=== PATIENT | male | born 1965 | race Two or more races ===

== ENCOUNTER → 2024-03-09 | Outpatient (CLI) | payer BC, SELFPAY ==
[2024-03-09 17:08] LABS: Anion Gap 10 (7-16); BUN/Creatinine Ratio 13 Ratio (12-20); Blood Urea Nitrogen 27 mg/dL (9-23); Calcium 9.6 mg/dL (8.3-10.6); Carbon Dioxide 28.1 mMol/L (20.0-31.0); Chloride 101 mMol/L (98-107); Creatinine (Component) 2.1 mg/dL (0.6-1.3); Glucose 113 mg/dL (74-106); Osmolality,Calculated 283 (275-295); Potassium 3.7 mMol/L (3.4-5.1); Sodium 139 mMol/L (136-145); eGFR 35 See Note
== END | disposition home or self-care (01) ==
PROVIDERS: PCP Family Medicine; Referring Provider Internal Medicine Cardiovascular Disease; Visit Provider Internal Medicine Cardiovascular Disease
DX: N18.9 Chronic kidney disease, unspecified (principal); I50.42 Chronic combined systolic (congestive) and diastolic (congestive) heart failure
CPT/HCPCS: 36415; 80048; 83735

== ENCOUNTER 2024-06-16 06:48 | Day surgery (SDC) | payer BC, SELFPAY ==
--- NOTE | 2024-06-15 07:00 | EKG_ITS ---
[facility] Test Date: 2024-06-15 Pat Name: KIYA POTTS Department: Room: - Gender: Male Billing Manager: RTSJC : 1965 Requested By: Chip Link Order Number: [id number] Reading MD: Chip Link Measurements Intervals [place] Rate: 66 P: 48 LA: 250 QRS: -27 QRSD: 140 T: 145 QT: 453 QTc: 475 Interpretive Statements SINUS RHYTHM WITH FIRST DEGREE AV BLOCK LEFT BUNDLE BRANCH BLOCK [120+ ms QRS DURATION, 80+ ms Q/S IN V1/V2, 85+ ms R IN I/aVL/V5/V6] Compared to ECG 04/01/2023 10:25:58 First degree AV block now present /store/[id number]
[2024-06-15 14:39] LABS: Basophils % (Auto) 0 % (0-2.5); Eosinophils # (Auto) 0.3 Thou/mm3 (0.0-0.5); Eosinophils % (Auto) 3 % (0-10); Hematocrit 41.2 % (41.0-53.0); Hemoglobin 14.4 g/dL (13.5-16.0); Immature Granulocytes % (Auto) 0 % (0-0); Immature Granulocytes Auto 0.03 Thou/mm3 (0.00-0.00); Lymphocytes % (Auto) 22 % (10-50); Mean Corpuscular Hemoglobin 29.8 pg (25.0-35.0); Mean Corpuscular Volume 85 fL (80-100); Monocytes # (Auto) 0.8 Thou/mm3 (0.0-0.8); Monocytes % (Auto) 9 % (0-12); Neutrophils # (Auto) 5.9 Thou/mm3 (1.8-7.7); Neutrophils % (Auto) 66 % (37-80); Nucleated Red Blood Cell % 0 /100 WBC (0); Platelet Count 309 Thou/mm3 (140-440); Red Blood Count 4.83 Miln/mm3 (4.50-5.90); White Blood Count 9.1 Thou/mm3 (3.8-10.6)
[2024-06-15 14:45] LABS: Partial Thromboplastin Time 26.9 Seconds (22.0-36.0); Prothrombin Time 10.5 Seconds (9.0-12.2)
[2024-06-15 14:46] LABS: Anion Gap 7 (7-16); BUN/Creatinine Ratio 16 Ratio (12-20); Blood Urea Nitrogen 27 mg/dL (9-23); Calcium 9.8 mg/dL (8.3-10.6); Carbon Dioxide 27.8 mMol/L (20.0-31.0); Chloride 106 mMol/L (98-107); Creatinine (Component) 1.7 mg/dL (0.6-1.3); Glucose 104 mg/dL (74-106); Osmolality,Calculated 286 (275-295); Potassium 4.5 mMol/L (3.4-5.1); Sodium 141 mMol/L (136-145); eGFR 46 See Note
[2024-06-16] VITALS (13 sets, daily range): BP systolic 135–197; BP diastolic 64–118; PULSE 60–77; RESP 11–18; TEMP 36.1–37.1; O2SAT 92–99
--- NOTE | 2024-06-16 10:00 | ESOP_ITS ---
Cardiac Cath Procedure Procedure Narrative Date of procedure: MUSIC INTERN: Chip Link MD PROCEDURE PERFORMED: 1. Left heart and right heart cardiac catheterization including right, left coronary angiograms and left ventriculogram - CPT 67029 2. Ultrasound-guided access of the right radial artery and right femoral vein - CPT 59171 3. Conscious sedation for 30 minutes - CPT 21058 HISTORY AND INDICATIONS: Patient did complain of chest pressure when he was in the palpitations and even after he converted to normal sinus rhythm and patient has new onset heart failure hence patient is a candidate for left and right coronary angiograms hence schedule for cardiac catheterization today. Discussed with patient risks, benefits and alternatives of performing left with coronary angiogram including the risks of bleeding, heart rate, stroke and with the procedure. Patient understands the risks and is willing to undergo the procedure. Consent provided for the same. H&P updated and consent was signed prior to the procedure DESCRIPTION OF PROCEDURE: The patient was brought to the cardiac catheterization lab and all asceptic precautions were followed. Patient was given 1 Mg of Versed and 50 mcg of fentanyl for moderate conscious sedation. 2 mL of lidocaine was given in the right wrist. The right radial artery was accessed via the ultrasound guidance as well as micropuncture technique. A 6 Tristanian glide sheath was introduced. Patient already had right antecubital vein access placed. Right antecubital vein access was cleaned appropriately and all aseptic precautions was followed and exchanged into a micropuncture catheter with the help of a micropuncture wire and then introduced and a 7 Tristanian sheath into the antecubital vein access with the help of a J-wire. A 7 Tristanian capitan grande catheter was used to direct catheter into the right atrium with inflated balloon. A 10 ml of lidocaine was then injected in the right femoral area and right femoral vein vein was accessed with ultrasound guidance and micropuncture technique. A 7 mongolian femoral sheath was used. A 7 Tristanian [place] catheter was used with a Valley wire to direct into the right atrium with inflated balloon. Serial measurements of right atrium, right ventricle, pulmonary artery and pulmonary capillary wedge were taken severely with normal respiration as well as at end expiration as noted below. We then used a 6 Tristanian TIG 4 catheter to perform the left and right coronary angiogram as well as a left ventriculogram which showed the following findings. [facility] findings: 1. Left ventricular ejection fraction was severely 20-25% without any regional wall motion abnormalities. LVEDP was normal at 37 mmHg. There was no significant transvalvular aortic gradient. 2. Right dominant circulation left main artery is a large-caliber vessel without any significant stenosis. 3. LAD is a large sized artery with a medium size diagonal and does not show any significant disease. mild 20% disease of ostial diagonal 1 4. LCx is a large sized artery with medium OM1 and small OM2 without any signi ficant disease. 5. RCA is a large artery with nedium RPDA and RPL without any significant disease. RHC findings: Mean right atrial pressure was 12 mmHg. Right atrial pressure was 53/16 mmHg. Pulmonary artery pressure was 60/32 mmHg with a mean of 44 mmHg. Mean pulmonary capillary wedge pressure was 30 mmHg. TPG was 14 mmHg Pulmonary artery PA saturation was 63.5%.? Arterial saturation was 95% on room air. Cardiac output was 4.0 L/min and cardiac index was normal at 1.9 L/min/m? A radial band was used to achieve the hemostasis of the right radial artery access and manual hemostasis for the right antecubital vein. Patient will be monitored in the cardiac aquatic instructor for the next 2 to 3 hours and will be sent to the telemetry floor. Patient recommended to follow-up with me in the office wit [facility] 7 days after discharge. Complications: None Specimens: None Blood loss: Estimated 5 ml Summary/findings: 1. Non ischemic cardiomyopathy: LHC showed normal coronaries without any angiographically significant obstruction and few luminal irregularities. 2. LVEF was severely low at 25-30%. 3. LVEDP severely elevated at 32 mm hg. No significant transvalvular aortic gradient. 4. Moderately elevated right heart pressures with mean RA of 14 mm hg, mean PA of 44 mmhg and mean PCWP at 32 mm hg which is secondary to the severe left heart dysfunction and possible CORNELIA component. Recommendations: 1. Recommend aggressive diuresis for HFrEF given severely elevated LVEDP at 32 mm hg. Lasix 40 mg IV BID for now. 2. 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
--- NOTE | 2024-06-16 10:40 | PC.NURSE ---
1040 patient s/p LHC and RHC by Dr. Link, TR band to right wrist, no bleeding or hematoma noted. gauze and coban to right brachial access site, no bleeding or hematoma noted. Report given to Hang MULLIGAN, patient to recover for 3 hrs.
--- NOTE | 2024-06-16 12:30 | PC.NURSE ---
TR band removed at this time. Surgical site asymptomatic, no active bleeding, no hematoma noted on right upper extremity or around the surgical site. Capillary refill < 3 seconds. No noted changes in color or temperature on right upper extremity. Patient denies general and localized pain, no loss in sensation, no tingling or numbness felt to right upper extremity. Tagaderm and Coban wrap applied. Will continue to monitor
--- NOTE | 2024-06-16 12:45 | PC.NURSE ---
Surgical site remains asymptomatic, no active bleeding, no hematoma noted on right upper extremity or around the surgical site. Capillary refill < 3 seconds. No noted changes in color or temperature on right upper extremity. Patient denies generalized and localized pain, no loss in sensation, no tingling or numbness felt to right upper extremity. Tagaderm and Coban wrap in place, clean, and dry. Will continue to monitor
--- NOTE | 2024-06-17 10:30 | PC.NURSE ---
Patient was brought into Cathlab and placed on the table in supine position, procedure was started and midway through the procedure the Hemodynamic Cable stopped working even after multiple attempts in trying to zero and get the cable to work so that we could continue with the procedure. DR Link was aware of the cable issue and deemed it not safe. I asked DR to explain the situation to patient since i am a certified Rn Postpartum, patient aware and understands the situation.
== END 2024-06-16 13:30 | disposition home or self-care (01) ==
PROVIDERS: Referring Provider Internal Medicine Cardiovascular Disease; Visit Provider Internal Medicine Cardiovascular Disease
PROC: (CPT 93460; principal; 2024-06-16 09:00)
DX: I25.118 Atherosclerotic heart disease of native coronary artery with other forms of angina pectoris (principal); I50.42 Chronic combined systolic (congestive) and diastolic (congestive) heart failure; N18.30 Chronic kidney disease, stage 3 unspecified; E66.9 Obesity, unspecified; G47.33 Obstructive sleep apnea (adult) (pediatric); Z01.810 Encounter for preprocedural cardiovascular examination; I13.0 Hypertensive heart and chronic kidney disease with heart failure and stage 1 through stage 4 chronic kidney disease, or unspecified chronic kidney disease; N18.9 Chronic kidney disease, unspecified; I42.8 Other cardiomyopathies
CPT/HCPCS: 93460; 36415; 80048; 85025; 85610; 85730; 93005; 99152; 99153; A4649; C1769; C1887; C1894; J0171; J0461; J1643; J2250; J2310; J2371; J2405; J3010; J3490; Q9967; J2305

== ENCOUNTER 2024-07-02 09:44 | Day surgery (SDC) | payer BC, SELFPAY ==
--- NOTE | 2024-07-01 07:00 | EKG_ITS ---
[facility] Test Date: 2024-07-01 Pat Name: KIYA POTTS Department: Room: - Gender: Male Furnace Mechanic: RAFFY : 1965 Requested By: Chip Link Order Number: [id number] Reading MD: Chip Link Measurements Intervals [place] Rate: 56 P: 3 NM: 216 QRS: -33 QRSD: 137 T: 140 QT: 464 QTc: 451 Interpretive Statements SINUS BRADYCARDIA WITH FIRST DEGREE AV BLOCK MARKED LEFT AXIS DEVIATION [QRS AXIS < -30] INTRAVENTRICULAR CONDUCTION DELAY [130+ ms QRS DURATION] LEFT VENTRICULAR HYPERTROPHY AND ST-T CHANGE [VOLTAGE CRITERIA PLUS ST/T ABNORMALITY] Compared to ECG 06/15/2024 13:58:14 Left-axis deviation now present Intraventricular conduction delay now present Left ventricular hypertrophy now present ST (T wave) deviation now present Sinus rhythm no longer present Left bundle-branch block no longer present /store/S0/[id number]/[id number].pdf
[2024-07-01 12:26] LABS: Basophils # (Auto) 0.1 Thou/mm3 (0.0-0.2); Basophils % (Auto) 1 % (0-2.5); Eosinophils # (Auto) 0.4 Thou/mm3 (0.0-0.5); Eosinophils % (Auto) 4 % (0-10); Hematocrit 43.1 % (41.0-53.0); Immature Granulocytes % (Auto) 0 % (0-0); Immature Granulocytes Auto 0.03 Thou/mm3 (0.00-0.00); Lymphocytes % (Auto) 22 % (10-50); Mean Corpuscular HGB Conc 34.8 g/dl (31.0-37.0); Mean Corpuscular Volume 86 fL (80-100); Monocytes # (Auto) 0.6 Thou/mm3 (0.0-0.8); Monocytes % (Auto) 6 % (0-12); Neutrophils # (Auto) 6.3 Thou/mm3 (1.8-7.7); Neutrophils % (Auto) 67 % (37-80); Nucleated Red Blood Cell % 0 /100 WBC (0); Platelet Count 285 Thou/mm3 (140-440); RDW Standard Deviation 45.5 fL (35.1-43.9); White Blood Count 9.4 Thou/mm3 (3.8-10.6)
[2024-07-01 12:36] LABS: Partial Thromboplastin Time 27.2 Seconds (22.0-36.0)
[2024-07-01 12:53] LABS: Anion Gap 12 (7-16); BUN/Creatinine Ratio 15 Ratio (12-20); Blood Urea Nitrogen 28 mg/dL (9-23); Calcium 9.8 mg/dL (8.3-10.6); Chloride 102 mMol/L (98-107); Creatinine (Component) 1.9 mg/dL (0.6-1.3); Glucose 110 mg/dL (74-106); Osmolality,Calculated 284 (275-295); Potassium 4.2 mMol/L (3.4-5.1); Sodium 139 mMol/L (136-145); eGFR 40 See Note
[2024-07-02] VITALS (14 sets, daily range): BP systolic 150–189; BP diastolic 84–112; PULSE 60–85; RESP 12–20; TEMP 36.1–37.1; O2SAT 96–99; BMI 37.3
--- NOTE | 2024-07-02 12:00 | ESOP_ITS ---
Cardiac Cath Procedure Procedure Name DATE OF THE PROCEDURE: 07/02/2024 PR MANAGER: Chip Link MD PROCEDURE PERFORMED: 1. Successful complex PCI of the proximal to mid diagonal 1/ramus with a 2.5 x 15 mm Vlad ODILIA stent with excellent results and no complications. 2. Successful complex PTCA performed to the mid to distal LAD DIGITAL MARKETING EXECUTIVE with 1.5 mm as well as 2.0 mm semicompliant balloon with excellent results and return of ARYA-3 flow and no complications. 3. Left heart cardiac catheterization including right, left coronary angiograms and left ventriculogram 4. Ultrasound-guided access of the right femoral artery. 5. Conscious sedation for 30 minutes. Procedure Narrative HHISTORY AND INDICATIONS:? A 57 year old male patient with past medical history of chronic combined systolic and diastolic CHF, uncontrolled hypertension, CORNELIA, morbid obesity and CKD stage 3, has a positive nuclear stress test that showed decreased uptake in the inferior and apical segments, with normal TID and low EF of 33%, and LHC could not be completed on 06/16/24 given the catheterization laboratory technician equipment malfunction then they could and there was no pressure waveform during the cardiac catheterization. Left coronary angiogram was done at that point of time which showed severe CAD with 100% occluded mid to distal LAD as well as severe 80% stenosis in diagonal 1 / ramus. Patient was brought in for an elective LHC and RHC with possible PCI. Patient was explained the risk benefits and alternatives of performing a left heart cardiac catheterization with including the risk of bleeding, heart attack, stroke and in detail and the agreeable for the procedure. Consent signed, placed in the chart and H&P updated. DESCRIPTION OF PROCEDURE: The patient was brought to the cardiac catheterization lab and all asceptic precautions were followed. Patient was given 1 Mg of Versed and 50 mcg of fentanyl for moderate conscious sedation. Patient had a tortuous right innominate artery and hence femoral artery pulmonary access was used. 10 mL of lidocaine was given to the right groin and the right femoral artery was accessed via the ultrasound guidance as well as micropuncture technique. A 6 Thai glide sheath was introduced. We then used a 6 Thai JR4 was used to perform RCA angiogram left ventriculogram and 6 Thai JR4 guide was used to perform the diagnostic left coronary angiogram. 1. Right dominant circulation 2. RCA is a large size artery with mild diffuse disease, medium sized RPDA and small RPL with no significant disease. 3. Left main is a large sized artery with no significant disease 4. LAD is a large size artery with moderate 40 to 50% stenosis in the mid LAD with 2 tandem lesions and 100% occluded mid to distal LAD receiving faint left to left collaterals indicating a DIGITAL MARKETING EXECUTIVE. Large diagonal 1 or ramus 1 with severe 80% stenosis in the in the proximal to mid segment 5. LCx is a large size artery with medium to large OM1 with mild diffuse disease as well as a small OM 2 with mild disease. Intervention: A 6 Thai EBU guide catheter was used to engage the left main artery. Patient was given weight-based heparin and ACT was greater than 250 and during the entire procedure. Patient was already on aspirin 81 mg once daily and was given a loading dose of aspirin 325 mg as well as Brilinta 180 mg. Patient was given additional Versed and fentanyl for the procedure. A run- through wire was used to cross the lesion in the proximal to mid diagonal 1 /ramus. We then used a 2.25 x 12 mm semicompliant balloon to perform predilation x 2. A 2.5 x 15 mm Vlad Synergy ODILIA stent was deployed successfully to the proximal to mid diagonal 1 with excellent results and ARYA-3 flow. No complications. Post dilation was performed with an NC balloon. We then used a run-through wire to cross mid to distal LAD DIGITAL MARKETING EXECUTIVE but were unable to cross try and eventually pilot boat deckhand 50 guidewire was used to cross the lesion successfully and angiogram was performed to ensure the wire was in the true lumen. After confirming the wire in the true lumen we then used 1.5 X12 mi llimeters semicompliant balloon at 6 8 and 10 aftab multiple times. See inflation data in the MAC lab report. Initial there was ARYA 0 flow and ARYA-3 flow was restored with a 1.50 x 12 mm semicompliant balloon and we then used a 2.0 x 12 mm semicompliant balloon and perform further inflations at 1012 and 14 aftab for a total of more than 1 minute. Excellent results achieved with ARYA-3 flow and mi ld residual stenosis. Patient also had severe residual disease distal to the intervention performed closer to the apex and hence no stents were placed as artery was very small in diameter was less than 2 mm and PTCA was only performed as noted above. Final angiographic images were taken and all interventional component was removed. ACC data: Diagonal 1/ramus intervention: Preintervention: Severe 80% stenosis with ARYA-3 flow Postintervention: No residual stenosis with ARYA-3 flow Mid to distal LAD intervention: Preintervention: Severe 100% stenosis with ARYA 0 flow Post intervention: Residual less than 10% stenosis with ARYA-3 flow Complications: None Specimens: None Blood loss: Estimated 5-10 ml Summary/Findings: 1. Abnormal stress test: LHC showed severe CAD involving the mid to distal LAD which appears to be a DIGITAL MARKETING EXECUTIVE with left to left collaterals which were faint. Moderate 50 to 60% disease noted in proximal and mid LAD and also severe 80% stenosis in the diagonal 1. Otherwise rest of the arteries including left main, RCA LCx, OM1, RPDA, RPL all have mild disease. 2. LVEF was mildly reduced at 40 to 45% with mild apical hypokinesis. There was no significant transvalvular aortic gradient. 3. Successful complex PCI of the proximal to mid diagonal 1/ramus with a 2.5 x 15 mm Vlad ODILIA stent with excellent results and no complications. 2. Successful complex PTCA performed to the mid to distal LAD DIGITAL MARKETING EXECUTIVE with 1.5 mm as well as 2.0 mm semicompliant balloon with excellent results and return of ARYA-3 flow and no complications. Recommendations: 1. Recommend aggressive medical treatment with aspirin 81 mg once daily for life along with Brilinta 90 mg twice daily. High intensity statin and beta- chun and ARB. 2. Aggressive risk factor modification. 3. Recommended to return to the clinic in 7 days to follow-up with me and not to lift more than 5 pounds. Chip Link MD Interventional Cardiology.
--- NOTE | 2024-07-02 18:03 | PC.NURSE ---
1405 patient is awake, alert, breathing unlabored, s/p LHC with PCI, puncture site closed with angioseal in photographic laboratory supervisor OR, dressing to right groin dry with no bleeding or hematoma. Report received from Rolando MULLIGAN, patient to recover until 1730 and start brilinta 90mg BID, continue aspirin as he has previously been taking. 1515 patient in semifowler position, no bleeding or hematoma noted to right groin dressing. 1758 patient is awake, alert, breathing unlabored, dressing dry with no bleeding or hematoma, brilinta called in to [facility] [place] [phone], patient and family member made aware to leaf size picker prescription and take first dose tonight 9pm.discharge instructions given, patient discharged home in wheelchair with all belongings. Pt ate sandwich with no nausea or vomiting and voided in urinal 750ml.
== END 2024-07-02 18:00 | disposition home or self-care (01) ==
PROVIDERS: Referring Provider Internal Medicine Cardiovascular Disease; Visit Provider Internal Medicine Cardiovascular Disease
PROC: (CPT 93460; principal; 2024-07-02 11:30)
DX: I25.10 Atherosclerotic heart disease of native coronary artery without angina pectoris (principal); I50.42 Chronic combined systolic (congestive) and diastolic (congestive) heart failure; Z01.810 Encounter for preprocedural cardiovascular examination; I13.0 Hypertensive heart and chronic kidney disease with heart failure and stage 1 through stage 4 chronic kidney disease, or unspecified chronic kidney disease; N18.30 Chronic kidney disease, stage 3 unspecified; E66.9 Obesity, unspecified; Z68.37 Body mass index [BMI] 37.0-37.9, adult
CPT/HCPCS: 93460; 36415; 80048; 85025; 85347; 85610; 85730; 93005; 99152; 99153; A4649; C1725; C1760; C1769; C1874; C1887; C1894; J0171; J0461; J1643; J2250; J2310; J2371; J3010; J3490; A9270; J2305